=== PATIENT | male | born 1960 | race Asian ===

== ENCOUNTER 2020-08-16 11:49 | Emergency (ER) | payer MEDICAID ==
[~2020-08-16] VITALS: Ht 172.7 cm; Wt 72.7 kg
[2020-08-16] MEDS ORDERED: INSU100I47 SQ (12:00)
[2020-08-16] MEDS ORDERED: LISI-662 PO (12:00)
[2020-08-16] MEDS ORDERED: ATOR20TA65 PO (12:00)
[2020-08-16] MEDS ORDERED: METF-960 PO (12:00)
[2020-08-16] MEDS ORDERED: GABA-1216 PO (12:00)
[2020-08-16] MEDS ORDERED: KETOROLAC TROMETHAMINE 60 MG/2 ML VIAL IM ONE (12:45)
[2020-08-16] MEDS ORDERED: METHOCARBAMOL 500 MG TABLET PO ONE (12:45)
[2020-08-16 13:20] VITALS: BP 138/94
== END 2020-08-16 13:25 | disposition home or self-care (01) ==
LOC: EMS 11:54
DX: S13.8XXA Sprain of joints and ligaments of other parts of neck, initial encounter (principal); X58.XXXA Exposure to other specified factors, initial encounter; Y93.89 Activity, other specified; Y92.89 Other specified places as the place of occurrence of the external cause; Y99.8 Other external cause status
CPT/HCPCS: 82962; 96372; 99283; J1885; 99281

== ENCOUNTER 2024-07-28 09:49 | Emergency (ER) | payer MEDICAID ==
[~2024-07-28] VITALS: Ht 172.7 cm; Wt 63.6 kg
[~2024-07-28 09:49] MED LIST: ATOR20TA65 PO; GABA-1216 PO; INSU100I47 SQ; LISI-662 PO; METF-1211 PO
[2024-07-28 09:57] VITALS: TEMP 98.3
[2024-07-28] MEDS ORDERED: INSU100V51 SQ ×2 (09:58→13:24)
[2024-07-28] MEDS ORDERED: ATOR40TA71 PO (09:58)
[2024-07-28] MEDS ORDERED: TAMS0.4C94 PO (09:58)
[2024-07-28] MEDS ORDERED: TOLT4CAP27 PO (09:58)
[2024-07-28] MEDS ORDERED: METO-408 PO (09:58)
[2024-07-28] MEDS ORDERED: METF-446 PO ×2 (09:58→13:24)
[2024-07-28] MEDS ORDERED: GABA-1181 PO (09:58)
[2024-07-28] MEDS ORDERED: ASPI-1444 PO (09:58)
[2024-07-28] MEDS ORDERED: NITR0.4T52 SL (11:33)
[2024-07-28] MEDS: SODIUM CHLORIDE 0.9% 1,000 ML IV ONE (11:37)
[2024-07-28] MEDS: ACETAMINOPHEN 500 MG TABLET PO ONE (11:37)
[2024-07-28] MEDS: CEPHALEXIN MONOHYDRATE 500 MG CAPSULE PO ONE (11:38)
[2024-07-28 11:53] LABS: BASOPHILS % (AUTO) 0.5 % (0.0-2.0); EOSINOPHILS % (AUTO) 1.6 % (1.0-6.0); HEMATOCRIT 47.3 % (41-53); LYMPHOCYTES # (AUTO) 1.2 K/uL (1.0-4.8); LYMPHOCYTES % (AUTO) 21.2 % (22.0-44.0); MEAN CORPUSCULAR HEMOGLOBIN 31.2 pg (26.0-34.0); MEAN CORPUSCULAR HGB CONC 33.8 G/dL (31.0-37.0); MEAN CORPUSCULAR VOLUME 92 fL (80-100); MONOCYTES # (AUTO) 0.5 K/uL (0.1-1.0); MONOCYTES % (AUTO) 9.1 % (2.0-9.0); NEUTROPHILS % (AUTO) 67.6 % (40.0-70.0); PLATELET COUNT (AUTO) 293 K/uL (150-450); RED BLOOD CELL COUNT(AUTO) 5.11 MIL/uL (4.50-5.90); RED CELL DISTRIBUTION WIDTH 13.3 % (11.5-14.5); WHITE BLOOD COUNT (AUTO) 5.8 K/uL (4.5-11.0)
[2024-07-28 12:00] VITALS: BP 144/78; PULSE 76; RESP 18; O2SAT 99
[2024-07-28 12:06] LABS: ANION GAP 10 mmol/L (8-16); CARBON DIOXIDE 27 mmol/L (22-29); CHLORIDE 93 mmol/L (98-107); CREATININE 1.46 mg/dL (0.60-1.30); GLOMERULAR FILTR. RATE CALC 49 mL/min (>60); POTASSIUM 4.8 mmol/L (3.5-5.1); SODIUM SERUM 130 mmol/L (136-145); UREA NITROGEN, BLOOD 21 mg/dL (7-18)
[2024-07-28 12:07] LABS: GLUCOSE,RANDOM 665 mg/dL (70-110)
[2024-07-28] MEDS: INSULIN REGULAR, HUMAN 100 UNITS/ML IVP ONE (12:14)
[2024-07-28 12:18] LABS: ACETONE,BLOOD NEGATIVE (NEGATIVE)
[2024-07-28] MEDS ORDERED: DOXY-354 PO (13:24)
[2024-07-28] MEDS ORDERED: CEPH-558 PO (13:24)
== END 2024-07-28 14:14 | disposition home or self-care (01) ==
LOC: EMS 09:52
DX: L03.011 Cellulitis of right finger (principal); E11.65 Type 2 diabetes mellitus with hyperglycemia; E78.00 Pure hypercholesterolemia, unspecified; I10 Essential (primary) hypertension; Z91.148 Patient's other noncompliance with medication regimen for other reason; Z79.899 Other long term (current) drug therapy; Z79.84 Long term (current) use of oral hypoglycemic drugs; Z79.82 Long term (current) use of aspirin; Z79.4 Long term (current) use of insulin; Z59.02 Unsheltered homelessness
CPT/HCPCS: 99284; 10160; 96374; 96361; 80048; 82009; 82962; 85025; 36415; J7030; J1815